=== PATIENT | female | born 1960 | race African-American/Black ===

== ENCOUNTER 2018-08-21 01:45 | Emergency (ER) | payer OTHER ==
[~2018-08-21] VITALS: Ht 167.6 cm; Wt 86.9 kg
[2018-08-21] MEDS ORDERED: ALBUTEROL (0.083%) 2.5MG/3ML NEB HHN ONE ×2 (03:45→04:30)
[2018-08-21] MEDS ORDERED: DEXAMETHASONE 4MG/ML 1ML VIAL IM ONE (04:30)
[2018-08-21 06:15] VITALS: BP 110/78
== END 2018-08-21 06:21 | disposition home or self-care (01) ==
LOC: EDBD 01:45 → ER 01:45
DX: J06.9 Acute upper respiratory infection, unspecified (principal); H69.82 Other specified disorders of Eustachian tube, left ear; J98.01 Acute bronchospasm; F17.200 Nicotine dependence, unspecified, uncomplicated; Z98.890 Other specified postprocedural states
CPT/HCPCS: 71045; 94640; 96372; 99284; J1100; J7611

== ENCOUNTER 2018-11-13 21:53 | Emergency (ER) | payer OTHER ==
[~2018-11-13] VITALS: Ht 167.6 cm; Wt 86.0 kg
[2018-11-14 01:23] VITALS: BP 121/77
== END 2018-11-14 05:39 | disposition home or self-care (01) ==
LOC: ER 21:53
DX: J40 Bronchitis, not specified as acute or chronic (principal); Z98.890 Other specified postprocedural states
CPT/HCPCS: 71045; 99283; Z7610

== ENCOUNTER 2019-08-03 06:30 | Emergency (ER) | payer OTHER ==
[~2019-08-03] VITALS: Ht 165.1 cm; Wt 73.0 kg
[~2019-08-03 06:30] MED LIST: advil
[2019-08-03] MEDS ORDERED: PREDNISONE 20MG TABLET PO STA (07:09)
[2019-08-03] MEDS ORDERED: IPRATROPIUM BROMIDE (0.02%) 0.5MG/2.5ML NEB HHN STA (07:09)
[2019-08-03] MEDS ORDERED: ALBUTEROL (0.083%) 2.5MG/3ML NEB HHN STA (07:09)
[2019-08-03] MEDS ORDERED: IBUPROFEN 600MG TABLET PO STA (07:09)
[2019-08-03 07:52] LABS: BASOPHILS % 0.6 % (0.0-2.0); EOSINOPHILS % 2.6 % (0.0-5.0); HEMATOCRIT. 45.4 % (36.0-48.0); HEMOGLOBIN. 15.2 g/dL (12.0-16.0); LYMPHOCYTES % 23.9 % (20.0-50.0); MEAN CORPUSCULAR HEMOGLOBIN 30.8 pg (28.0-32.0); MEAN PLATELET VOLUME 9.2 fl (7.4-10.4); MONOCYTES % 7.9 % (2.0-8.0); PLATELET 166 x1000/uL (130-400); RED BLOOD CELL COUNT 4.94 mill/uL (4.2-5.4); RED CELL DISTRIBUTION WIDTH 13.6 % (11.6-14.6)
[2019-08-03 07:57] LABS: CHLORIDE 111 mEq/L (98-107)
[2019-08-03 08:55] VITALS: BP 115/85
== END 2019-08-03 09:32 | disposition home or self-care (01) ==
LOC: ER 06:33
DX: J44.1 Chronic obstructive pulmonary disease with (acute) exacerbation (principal); F17.290 Nicotine dependence, other tobacco product, uncomplicated
CPT/HCPCS: 36415; 71045; 80053; 85025; 94640; 99284; 99406; J7512; J7611; Z7610

== ENCOUNTER 2019-08-13 21:50 | Emergency (ER) | payer OTHER ==
[~2019-08-13] VITALS: Ht 167.6 cm; Wt 86.0 kg
[2019-08-13 21:55] VITALS: BP 142/86
[2019-08-14] MEDS ORDERED: PREDNISONE 20MG TABLET PO ONE (01:00)
[2019-08-14] MEDS ORDERED: DIPHENHYDRAMINE 50MG CAPSULE PO ONE (01:00)
== END 2019-08-14 02:33 | disposition home or self-care (01) ==
LOC: ER 21:50
DX: J40 Bronchitis, not specified as acute or chronic (principal)
CPT/HCPCS: 99283; J7512; Q0163; 99406

== ENCOUNTER 2019-11-24 03:25 | Emergency (ER) | payer OTHER ==
[~2019-11-24] VITALS: Ht 170.2 cm; Wt 82.0 kg
[2019-11-24] MEDS ORDERED: ACETAMINOPHEN 500MG TABLET PO ONE (03:45)
[2019-11-24 04:08] VITALS: BP 145/78
[2019-11-24] MEDS ORDERED: ONDANSETRON 4MG ODT PO ONE (04:45)
== END 2019-11-24 05:04 | disposition home or self-care (01) ==
LOC: ER 03:25
DX: J06.9 Acute upper respiratory infection, unspecified (principal); F17.200 Nicotine dependence, unspecified, uncomplicated
CPT/HCPCS: 71045; 87804; 99284; Q0162

== ENCOUNTER 2022-03-04 00:43 | Emergency (ER) | payer OTHER ==
[~2022-03-04] VITALS: Ht 167.6 cm; Wt 113.0 kg
[2022-03-04] MEDS ORDERED: ACETAMINOPHEN 325MG TABLET PO ONE (07:30)
[2022-03-04] MEDS ORDERED: ONDANSETRON HCL 4MG TABLET PO ONE (08:15)
[2022-03-04] MEDS ORDERED: TOPUD PO (08:17)
[2022-03-04] MEDS ORDERED: ONDA4TAB50 PO (08:17)
[2022-03-04 08:36] VITALS: BP 136/81
== END 2022-03-04 08:38 | disposition home or self-care (01) ==
LOC: ER 00:43
DX: M54.59 Other low back pain (principal); Z91.81 History of falling
CPT/HCPCS: 72100; 99283; Q0162

== ENCOUNTER 2022-03-25 10:30 | Inpatient (IN) | payer OTHER ==
[~2022-03-25] VITALS: Ht 162.6 cm; Wt 80.8 kg
[~2022-03-25 10:30] MED LIST changes: +ONDA4TAB50 PO; +TOPUD PO; -advil
[2022-03-25] MEDS ORDERED: ACETAMINOPHEN 325MG TABLET PO STA (10:44)
[2022-03-25] MEDS ORDERED: ALBUTEROL 6.7GM HFA INHALER ORI ONE (10:45)
[2022-03-25 11:32] LABS: BASOPHILS % 0.7 % (0.0-2.0); EOSINOPHILS % 0.4 % (0.0-5.0); HEMATOCRIT. 37.5 % (36.0-48.0); HEMOGLOBIN. 12.1 g/dL (12.0-16.0); LYMPHOCYTES % 15.1 % (20.0-50.0); MEAN CORPUSCULAR HEMOGLOBIN 28.4 pg (28.0-32.0); MEAN CORPUSCULAR VOLUME 88.3 fL (81.0-99.0); MEAN PLATELET VOLUME 8.6 fl (7.4-10.4); MONOCYTES % 5.8 % (2.0-8.0); PLATELET 424 x1000/uL (130-400); RED BLOOD CELL COUNT 4.25 mill/uL (4.2-5.4); RED CELL DISTRIBUTION WIDTH 16.5 % (11.6-14.6)
[2022-03-25 11:49] LABS: CHLORIDE 108 mEq/L (98-107)
[2022-03-25 11:59] LABS: ETHANOL BLOOD < 10 mg/dL
[2022-03-25] MEDS ORDERED: POTASSIUM CHLORIDE 20MEQ TABLET SR PO NR (15:45)
[2022-03-25] MEDS ORDERED: ACETAMINOPHEN 650MG/20.3ML UDC PO PRN (19:30)
[2022-03-25 19:45] VITALS: BP 115/61
[2022-03-25 20:00] VITALS: BP 137/69
[2022-03-25 20:36] LABS: BASOPHILS % 0.8 % (0.0-2.0); EOSINOPHILS % 2.2 % (0.0-5.0); HEMATOCRIT. 37.4 % (36.0-48.0); HEMOGLOBIN. 11.9 g/dL (12.0-16.0); LYMPHOCYTES % 22.5 % (20.0-50.0); MEAN CORPUSCULAR HEMOGLOBIN 28.5 pg (28.0-32.0); MEAN CORPUSCULAR VOLUME 89.5 fL (81.0-99.0); MEAN PLATELET VOLUME 8.9 fl (7.4-10.4); MONOCYTES % 7.4 % (2.0-8.0); NEUTROPHILS % 67.1 % (40.0-76.0); PLATELET 350 x1000/uL (130-400); RED BLOOD CELL COUNT 4.18 mill/uL (4.2-5.4); RED CELL DISTRIBUTION WIDTH 16.6 % (11.6-14.6)
[2022-03-25 20:55] LABS: CHLORIDE 109 mEq/L (98-107)
[2022-03-25] MEDS ORDERED: CEFTRIAXONE 1 G PREMIX 50 ML IV SCH (21:00)
[2022-03-25] MEDS: ZOLPIDEM TARTRATE 5MG TABLET PO PRN (21:21)
[2022-03-25] MEDS: AZITHROMYCIN 500 MG in DEXT 5% WATER 250 ML IV SCH (21:22)
[2022-03-25] MEDS: CEFTRIAXONE 1,000 MG in DEXTROSE 5% WATER 50 ML IV SCH (21:22)
[2022-03-26] VITALS: BP 134/80
[2022-03-26 04:00] VITALS: BP 132/78
[2022-03-26 08:00] VITALS: BP 119/70
[2022-03-26 12:00] VITALS: BP 136/61
[2022-03-26 12:25] LABS: PARTIAL THROMBOPLASTIN TIME 26.2 sec (23.4-31.0); PROTHROMBIN TIME 10.9 sec (9.6-11.0)
[2022-03-26 16:00] VITALS: BP 143/71
[2022-03-26 20:00] VITALS: BP 142/70
[2022-03-26] MEDS: AZITHROMYCIN 500 MG in DEXT 5% WATER 250 ML IV SCH (21:54)
[2022-03-26] MEDS: ZOLPIDEM TARTRATE 5MG TABLET PO PRN (22:19)
[2022-03-27] VITALS: BP 141/79
[2022-03-27 04:00] VITALS: BP 134/54
[2022-03-27 08:00] VITALS: BP 119/68
[2022-03-27 12:00] VITALS: BP 117/80
[2022-03-27 16:00] VITALS: BP 156/92
[2022-03-27 20:00] VITALS: BP 143/84
[2022-03-27] MEDS: ZOLPIDEM TARTRATE 5MG TABLET PO PRN (21:05)
[2022-03-28] VITALS: BP 139/88
[2022-03-28 04:00] VITALS: BP 152/82
[2022-03-28] MEDS: IPRATROPIUM/ALBUTEROL 0.5-3(2.5)MG/3ML NEB HHN PRN ×3 (06:55→22:03)
[2022-03-28 08:00] VITALS: BP 156/93
[2022-03-28 12:00] VITALS: BP 156/88
[2022-03-28] MEDS ORDERED: ONDANSETRON HCL 8MG TABLET PO PRN (13:30)
[2022-03-28 16:00] VITALS: BP 151/87
[2022-03-28 20:00] VITALS: BP 101/66
[2022-03-28] MEDS: ZOLPIDEM TARTRATE 5MG TABLET PO PRN (21:08)
[2022-03-29] VITALS (7 sets, daily range): BP systolic 101–155; BP diastolic 60–90
[2022-03-29] MEDS: IPRATROPIUM/ALBUTEROL 0.5-3(2.5)MG/3ML NEB HHN PRN ×2 (14:48→21:59)
[2022-03-29] MEDS ORDERED: ONDANSETRON HCL 4MG TABLET PO PRN (15:30)
[2022-03-29] MEDS: ZOLPIDEM TARTRATE 5MG TABLET PO PRN (21:58)
[2022-03-30] VITALS: BP 131/72
[2022-03-30 04:00] VITALS: BP 107/58
[2022-03-30 08:00] VITALS: BP 96/51
== END 2022-03-30 11:40 | disposition home or self-care (01) | DRG 140 ==
LOC: ER 10:30 → 8WST 16:02 → ENRESERV 17:47 → ER 18:02
PROVIDERS: ADMIT Internal Medicine; ATTEND Internal Medicine
DX: J44.1 Chronic obstructive pulmonary disease with (acute) exacerbation (principal); K80.00 Calculus of gallbladder with acute cholecystitis without obstruction; E44.1 Mild protein-calorie malnutrition; I95.9 Hypotension, unspecified; J40 Bronchitis, not specified as acute or chronic; E87.6 Hypokalemia; E66.9 Obesity, unspecified; M19.90 Unspecified osteoarthritis, unspecified site; F17.210 Nicotine dependence, cigarettes, uncomplicated; Z20.822 Contact with and (suspected) exposure to COVID-19; R90.82 White matter disease, unspecified; Z68.30 Body mass index [BMI] 30.0-30.9, adult; Z71.6 Tobacco abuse counseling; J91.8 Pleural effusion in other conditions classified elsewhere
CPT/HCPCS: 36415; 71045; 76705; 80048; 80053; 80320; 83605; 83880; 84484; 85025; 87426; 93005; 94640; 99285; C9803; J0456; J0696; J7060; G0480

== ENCOUNTER 2022-04-05 08:02 | Emergency (ER) | payer OTHER ==
[~2022-04-05] VITALS: Ht 167.6 cm; Wt 96.0 kg
[~2022-04-05 08:02] MED LIST changes: -ONDA4TAB50 PO
[2022-04-05 08:25] VITALS: BP 120/82
== END 2022-04-05 12:50 | disposition left against medical advice (07) ==
LOC: ER 08:02
DX: Z53.21 Procedure and treatment not carried out due to patient leaving prior to being seen by health care provider (principal); R06.02 Shortness of breath; R07.9 Chest pain, unspecified; R05.9 Cough, unspecified
CPT/HCPCS: 71045; 93005

== ENCOUNTER 2022-04-06 04:37 | Emergency (ER) | payer OTHER | END 2022-04-06 05:55 | disposition left against medical advice (07) | LOC: ER 04:37 | DX: Z53.21 Procedure and treatment not carried out due to patient leaving prior to being seen by health care provider (principal) ==